=== PATIENT | female | born 2000 | race Two or more races ===

== ENCOUNTER 2025-03-04 14:16 | Emergency (ER) | payer OTHER ==
[~2025-03-04] VITALS: Ht 167.6 cm; Wt 52.2 kg
[2025-03-04] MEDS ORDERED: ANTIDEPRESIVOS (14:21)
[2025-03-04 17:08] LABS: INR 1.05
[2025-03-04 17:12] LABS: ALT/SGPT 22.0 U/L (12-78); AST/SGOT 13.0 U/L (15-37); BASO % 0.6 % (0.1-1.2); BILIRUBIN TOTAL 1.13 mg/dL (0.3-1.2); BILIRUBIN,CONJUGATED 0.31 mg/dL (0.0-0.2); BUN CREA RATIO 10.0 (7.0-25.0); CREATININE SERUM 0.73 mg/dL (0.55-1.02); EOS # 0.06 (0.04-0.54); EOS % 0.9 % (0.7-7.0); GFR 99.69; GLOBULINA 3.0 G/DL (2.4-3.5); GLUCOSE FASTING 104.0 mg/dL (65-100); LYMPH # 1.89 (1.18-3.74); LYMPH % 28.4 % (19.3-53.1); MEAN PLATELET VOLUME 9.80 fl (9.4-12.4); MONO # 0.61 (0.24-0.82); MONO % 9.2 % (4.7-12.5); NEUT # 4.03 (1.56-6.13); NEUT % 60.6 % (34.0-71.1); OSMOLALITY SERUM 281.0 MOSM/KG (275-295); RED CELL DISTRIBUTION WIDTH 12.0 % (11.6-14.4)
== END 2025-03-04 21:48 | disposition home or self-care (01) ==
LOC: ER 14:16
DX: N83.209 Unspecified ovarian cyst, unspecified side (principal); R10.9 Unspecified abdominal pain